=== PATIENT | male | born 1960 | race Caucasian/White ===

== ENCOUNTER 2016-10-07 11:19 | Emergency (ER) | payer BC, OTHER ==
[~2016-10-07] VITALS: Ht 180.3 cm; Wt 104.3 kg
[2016-10-07 11:43] VITALS: BP 115/77
[2016-10-07] MEDS ORDERED: LIDOCAINE 1% HCL (LOCAL ANESTH.) INJ 20ML MDV IJ ONE (13:30)
[2016-10-07] MEDS ORDERED: BACITRACIN-POLYMYXIN B TOPICAL OINT UD TOP ONE ×2 (14:36→14:45)
[2016-10-07] MEDS ORDERED: TETANUS-DIPTH-ACEL PERTUSSIS 0.5ML SYRG IM ONE (14:45)
[2016-10-07] MEDS ORDERED: NEOMYCIN-BACITRACIN-POLYM 15GM TOP OINT TOP SCH (22:00)
== END 2016-10-07 14:57 | disposition home or self-care (01) ==
LOC: ER 11:31
DX: S61.212A Laceration without foreign body of right middle finger without damage to nail, initial encounter (principal); S61.214A Laceration without foreign body of right ring finger without damage to nail, initial encounter; S61.216A Laceration without foreign body of right little finger without damage to nail, initial encounter; Z23 Encounter for immunization; X58.XXXA Exposure to other specified factors, initial encounter; Y93.89 Activity, other specified; Y99.8 Other external cause status; Y92.89 Other specified places as the place of occurrence of the external cause
CPT/HCPCS: 12004; 73130; 90471; 90715

== ENCOUNTER 2020-06-09 15:53 | Emergency (ER) | payer OTHER ==
[~2020-06-09] VITALS: Ht 180.3 cm; Wt 113.4 kg
[2020-06-09] MEDS ORDERED: LORazepam 0.5 MG TAB PO ONE (16:15)
[2020-06-09 16:37] LABS: Basophils # (auto) 0.1 10 ^3/uL (0-0.2); Eosinophils # (auto) 0.2 10 ^3/uL (0-0.8); Eosinophils % (auto) 2.3 % (0.0-7.0); Hemoglobin 14.8 g/dL (13.5-17.5); Lymphocytes # (auto) 2.3 10 ^3/uL (0.4-5.4); Monocytes # (auto) 0.6 10 ^3/uL (0-1.3); Nucleated Red Blood Cells % 0.1 %; Platelet Count (auto) 211 10^3/uL (140-450)
[2020-06-09 16:39] LABS: Basophils % (auto) 0.9 % (0.0-2.0); Hematocrit 42.8 % (41.0-53.0); Lymphocytes % (auto) 30.4 % (10.0-50.0); Mean Corpuscular Hemoglobin 34.3 pg (28.0-32.0); Mean Corpuscular Hgb Conc. 34.6 g/dL (32.0-36.0); Mean Corpuscular Volume 99.4 fL (80.0-100.0); Monocytes % (auto) 8.3 % (0.0-12.0); Neutrophils # (auto) 4.3 10 ^3/uL (1.6-8.6); Neutrophils % (auto) 58.1 % (37.0-80.0); Red Cell Distribution Width 13.2 % (11.8-14.3); White Blood Cell 7.4 10^3/uL (4.4-10.8)
[2020-06-09 16:53] LABS: Alanine Aminotransferase 26 U/L (16-61); Albumin 3.5 g/dL (3.4-5.0); Anion Gap 7 (5-15); Aspartate Aminotransferase 14 U/L (15-37); BUN/Creatinine Ratio 15.9; Blood Urea Nitrogen 14 mg/dL (7-18); Calcium 8.6 mg/dL (8.5-10.1); Carbon Dioxide 26 mmol/L (21-32); Chloride 104 mmol/L (98-107); GFR African American 114 mL/min; GFR Non-African American 94 mL/min; Glucose 109 mg/dL (74-106); Potassium 3.8 mmol/L (3.5-5.1); Sodium 137 mmol/L (136-145)
[2020-06-09 16:59] LABS: Alkaline Phosphatase 89 U/L (45-117); Bilirubin, Total 0.3 mg/dL (0.2-1.0); Total Protein 6.6 g/dL (6.4-8.2)
[2020-06-09 19:02] VITALS: BP 107/69
== END 2020-06-09 19:31 | disposition home or self-care (01) ==
LOC: ER 15:53
DX: J06.9 Acute upper respiratory infection, unspecified (principal); F41.9 Anxiety disorder, unspecified
CPT/HCPCS: 36415; 70450; 71045; 80053; 84484; 85025

== ENCOUNTER 2021-01-20 11:44 | Emergency (ER) | payer OTHER ==
[~2021-01-20] VITALS: Ht 180.3 cm; Wt 108.9 kg
[2021-01-20 13:30] VITALS: BP 128/87
[2021-01-20] MEDS ORDERED: KETOROLAC TROMETH 60MG/2ML VIAL IM ONE (14:00)
== END 2021-01-20 14:27 | disposition home or self-care (01) ==
LOC: ER 11:44
DX: S39.012A Strain of muscle, fascia and tendon of lower back, initial encounter (principal); W18.39XA Other fall on same level, initial encounter; Y93.89 Activity, other specified; Y92.89 Other specified places as the place of occurrence of the external cause; Y99.8 Other external cause status
CPT/HCPCS: 72110; 72220; 96372; 99284; J1885

== ENCOUNTER 2021-04-25 09:02 | Emergency (ER) | payer OTHER ==
[~2021-04-25] VITALS: Ht 180.3 cm; Wt 108.9 kg
[2021-04-25 09:06] VITALS: BP 130/85
[2021-04-25 09:46] LABS: Urine Bacteria NONE SEEN /hpf (None Seen); Urine Blood Negative /uL (Negative); Urine Specific Gravity 1.011 (1.001-1.035); Urine WBC <1 /hpf (0 - 3)
[2021-04-25] MEDS ORDERED: KETOROLAC TROMETH 60MG/2ML VIAL IM ONE (11:15)
== END 2021-04-25 11:27 | disposition home or self-care (01) ==
LOC: ER 09:02
DX: R35.0 Frequency of micturition (principal); R39.15 Urgency of urination
CPT/HCPCS: 81001